=== PATIENT | female | born 1965 | race Caucasian/White ===

== ENCOUNTER → 2016-12-18 | Outpatient (CLI) | payer OTHER ==
[~2016-12-18] MED LIST: IOPAMIDOL (ISOVUE-300) 100 ML BTL IV ONE
[2016-12-18 10:18] LABS: CREATININE 0.8 mg/dL (0.6-1.0); GLOMERULAR FILTRATION RATE > 60
== END ==
LOC: FIMAGING 08:58
PROVIDERS: ATTEND Internal Medicine Endocrinology, Diabetes & Metabolism
DX: G44.001 Cluster headache syndrome, unspecified, intractable (principal); J01.10 Acute frontal sinusitis, unspecified; H53.9 Unspecified visual disturbance
CPT/HCPCS: Q9967

== ENCOUNTER → 2017-02-16 | Outpatient (CLI) | payer OTHER | LOC: CIMAGING 16:48 | PROVIDERS: ATTEND Family Medicine | DX: N92.6 Irregular menstruation, unspecified (principal); R19.7 Diarrhea, unspecified; R14.0 Abdominal distension (gaseous) | CPT/HCPCS: 76856-PO ==

== ENCOUNTER → 2017-03-26 | Outpatient (CLI) | payer OTHER | LOC: CIMAGING 08:09 | PROVIDERS: ATTEND Midwife | DX: D25.1 Intramural leiomyoma of uterus (principal); N92.4 Excessive bleeding in the premenopausal period; N83.202 Unspecified ovarian cyst, left side | CPT/HCPCS: 76856-PO ==

== ENCOUNTER → 2018-02-03 | Outpatient (CLI) | payer OTHER | LOC: CIMAGING 14:49 | PROVIDERS: ATTEND Family Medicine | DX: M25.511 Pain in right shoulder (principal) | CPT/HCPCS: 73030-PO ==

== ENCOUNTER → 2018-03-18 | Outpatient (CLI) | payer OTHER | LOC: FIMAGING 13:40 | PROVIDERS: ATTEND Family Medicine | DX: S46.911A Strain of unspecified muscle, fascia and tendon at shoulder and upper arm level, right arm, initial encounter (principal); M75.91 Shoulder lesion, unspecified, right shoulder ==